=== PATIENT | male | born 1985 | race Asian ===

== ENCOUNTER 2017-10-31 18:03 | Emergency (ER) | payer SELFPAY ==
[~2017-10-31] VITALS: Ht 167.6 cm; Wt 81.5 kg
[2017-10-31 19:00] VITALS: BP 139/65
[2017-10-31] MEDS ORDERED: OxyCODONE HCL/ACETAMINOPHEN 5-325 MG TABLET PO ONE (19:15)
[2017-10-31] MEDS ORDERED: SILVER SULFADIAZINE 1% 25 GM CREAM TP ONE (19:15)
== END 2017-10-31 19:40 | disposition home or self-care (01) ==
LOC: EMS 18:04 → EDSEX 18:04 → EMS 19:40
DX: T65.891A Toxic effect of other specified substances, accidental (unintentional), initial encounter (principal); T20.57XA Corrosion of first degree of neck, initial encounter; T20.53XA Corrosion of first degree of chin, initial encounter; T20.56XA Corrosion of first degree of forehead and cheek, initial encounter; F17.210 Nicotine dependence, cigarettes, uncomplicated; F12.10 Cannabis abuse, uncomplicated; F15.10 Other stimulant abuse, uncomplicated; Y93.89 Activity, other specified; Y92.89 Other specified places as the place of occurrence of the external cause; Y99.8 Other external cause status
CPT/HCPCS: 16000; 99284; Z7610

== ENCOUNTER 2018-04-30 17:24 | Emergency (ER) | payer OTHER ==
[~2018-04-30] VITALS: Ht 167.6 cm; Wt 81.8 kg
[2018-04-30] MEDS ORDERED: POVIDONE-IODINE 10% 15 ML SOLUTION UD TP ONE (18:00)
[2018-04-30] MEDS ORDERED: PERTUSS(ACELL),DIPH,TET VAC/PF 0.5 ML VIAL IM ONE (18:00)
[2018-04-30 19:15] VITALS: BP 128/69
== END 2018-04-30 19:52 | disposition home or self-care (01) ==
LOC: EMS 17:25
DX: S91.331A Puncture wound without foreign body, right foot, initial encounter (principal); F12.90 Cannabis use, unspecified, uncomplicated; F15.90 Other stimulant use, unspecified, uncomplicated; F17.210 Nicotine dependence, cigarettes, uncomplicated; W45.0XXA Nail entering through skin, initial encounter; Y93.H2 Activity, gardening and landscaping; Y92.89 Other specified places as the place of occurrence of the external cause; Y99.0 Civilian activity done for income or pay
CPT/HCPCS: 90471; 90715; 99284; 99406

== ENCOUNTER 2019-08-23 15:40 | Emergency (ER) | payer OTHER ==
[~2019-08-23] VITALS: Ht 172.7 cm; Wt 81.8 kg
[2019-08-23] MEDS ORDERED: FLUORESCEIN SODIUM 1 MG STRIP OU ONE (18:15)
[2019-08-23] MEDS ORDERED: PROPARACAINE HCL 0.5% 15 ML OPHTHALMIC SOLUTION OU ONE (18:15)
[2019-08-23] MEDS ORDERED: ERYTHROMYCIN 0.5% 3.5 GM TUBE OPHTHALMIC OINTMENT ONE (19:00)
[2019-08-23 19:48] VITALS: BP 148/89
== END 2019-08-23 19:49 | disposition home or self-care (01) ==
LOC: EMS 15:40
DX: S05.02XA Injury of conjunctiva and corneal abrasion without foreign body, left eye, initial encounter (principal); F17.210 Nicotine dependence, cigarettes, uncomplicated; F12.90 Cannabis use, unspecified, uncomplicated; F15.90 Other stimulant use, unspecified, uncomplicated; X58.XXXA Exposure to other specified factors, initial encounter; Y93.89 Activity, other specified; Y92.69 Other specified industrial and construction area as the place of occurrence of the external cause; Y99.0 Civilian activity done for income or pay
CPT/HCPCS: 99406

== ENCOUNTER 2021-04-28 15:49 | Emergency (ER) | payer OTHER ==
[~2021-04-28] VITALS: Ht 172.7 cm; Wt 77.3 kg
[2021-04-28] MEDS ORDERED: PERTUSS(ACELL),DIPH,TET VAC/PF 0.5 ML SYRINGE IM. ONE (16:15)
[2021-04-28] MEDS ORDERED: LORazepam 2 MG/ML VIAL IVP ONE (16:15)
[2021-04-28] MEDS ORDERED: BACITRACIN 0.9 GM PACKET OINTMENT TP ONE (16:15)
[2021-04-28] MEDS ORDERED: SODIUM CHLORIDE 0.9% 2,000 ML IV ONE (16:15)
[2021-04-28 16:28] LABS: BASOPHILS % (AUTO) 0.6 % (0.0-2.0); EOSINOPHILS % (AUTO) 0.4 % (1.0-6.0); HEMATOCRIT 43.2 % (41-53); HEMOGLOBIN 14.2 g/dL (13.5-17.5); LYMPHOCYTES # (AUTO) 2.7 K/uL (1.0-4.8); LYMPHOCYTES % (AUTO) 17.5 % (22.0-44.0); MEAN CORPUSCULAR HEMOGLOBIN 28.6 pg (26.0-34.0); MEAN CORPUSCULAR HGB CONC 32.8 G/dL (31.0-37.0); MEAN CORPUSCULAR VOLUME 87 fL (80-100); MONOCYTES # (AUTO) 1.2 K/uL (0.1-1.0); NEUTROPHILS # (AUTO) 11.2 K/uL (1.8-7.7); NEUTROPHILS % (AUTO) 73.5 % (40.0-70.0); PLATELET COUNT (AUTO) 378 K/uL (150-450); RED BLOOD CELL COUNT(AUTO) 4.95 MIL/uL (4.50-5.90); RED CELL DISTRIBUTION WIDTH 14.3 % (11.5-14.5)
[2021-04-28 16:43] LABS: ANION GAP 16 mmol/L (8-16); CALCIUM, TOTAL 9.3 mg/dL (8.8-10.5); CARBON DIOXIDE 26 mmol/L (22-29); CHLORIDE 98 mmol/L (98-107); CREATININE 1.71 mg/dL (0.60-1.30); GLOMERULAR FILTR. RATE CALC 46 mL/min (>60); GLUCOSE,RANDOM 138 mg/dL (70-110); POTASSIUM 3.5 mmol/L (3.5-5.1); SODIUM SERUM 140 mmol/L (136-145); UREA NITROGEN, BLOOD 25 mg/dL (7-18)
[2021-04-28 16:53] LABS: ALANINE AMINOTRANSFERASE 43 U/L (12-78); ALBUMIN 4.6 g/dL (3.4-5.0); ALKALINE PHOSPHATASE 66 U/L (46-116); ASPARTATE AMINOTRANSFERASE 51 U/L (15-37); BILIRUBIN,TOTAL 0.7 mg/dL (0.1-1.0); CREATINE KINASE, TOTAL ONLY 1743 U/L (39-308); TOTAL PROTEIN, SERUM 8.5 g/dL (6.4-8.2)
[2021-04-28 16:57] LABS: LACTIC ACID 2.2 mmol/L (0.4-2.0)
[2021-04-28] MEDS ORDERED: HYDROGEN PEROXIDE 118 ML SOLUTION TP ONE (18:30)
[2021-04-28] MEDS ORDERED: ONDANSETRON HCL 4 MG/2 ML VIAL IVP ONE (18:30)
[2021-04-28] MEDS ORDERED: HYDROmorphone 2 MG/ML VIAL IVP ONE (18:30)
[2021-04-28 20:44] LABS: COVID AG,FIA SOURCE NASOPHARYNGEAL
[2021-04-28] MEDS ORDERED: DEXTROSE 5%-0.45% SODIUM CHL 1,000 ML IV ONE (20:45)
[2021-04-28] MEDS ORDERED: ONDANSETRON HCL 4 MG/2 ML VIAL IVP PRN (20:45)
[2021-04-28] MEDS ORDERED: HYDROmorphone 2 MG/ML VIAL IVP PRN (20:45)
[2021-04-28] MEDS ORDERED: ACETAMINOPHEN 325 MG TABLET PO PRN (20:45)
[2021-04-28] MEDS ORDERED: 0.9% SODIUM CHLORIDE 10 ML SYRINGE IVP PRN (20:45)
[2021-04-28 21:00] VITALS: BP 119/76
[2021-04-28] MEDS ORDERED: CeFAZolin 2 GM/DEXTROSE 50 ML IV SCH (21:00)
== END 2021-04-28 21:53 | disposition left against medical advice (07) ==
LOC: EMS 15:50
DX: S82.111A Displaced fracture of right tibial spine, initial encounter for closed fracture (principal); S72.431A Displaced fracture of medial condyle of right femur, initial encounter for closed fracture; F17.210 Nicotine dependence, cigarettes, uncomplicated; F12.90 Cannabis use, unspecified, uncomplicated; N17.9 Acute kidney failure, unspecified; E86.0 Dehydration; F15.10 Other stimulant abuse, uncomplicated; Z20.822 Contact with and (suspected) exposure to COVID-19; W22.8XXA Striking against or struck by other objects, initial encounter; Y93.89 Activity, other specified; Y92.89 Other specified places as the place of occurrence of the external cause; Y99.8 Other external cause status
CPT/HCPCS: 29505; 36415; 70450; 71045; 71260; 72125; 73502; 73562; 73590; 73610; 73630 ×2; 74177; 80053; 82550; 83605; 85025; 87426; 90471; 90715; 96361; 96365; 96375; 99291; G0480; J0690; J1170; J2060; J2405; J7030; X7700; 72193; 74160

== ENCOUNTER 2022-11-30 19:05 | Emergency (ER) | payer OTHER | END 2022-11-30 21:55 | disposition still patient (30) | LOC: EMS 19:06 | DX: Z53.21 Procedure and treatment not carried out due to patient leaving prior to being seen by health care provider (principal) ==